=== PATIENT | male | born 1955 | race Caucasian/White ===

== ENCOUNTER 2017-09-21 15:31 | Outpatient (CLI) | END 2017-09-21 15:32 | disposition home or self-care (01) | LOC: RHC-LAB 15:31 | PROVIDERS: ATTEND Emergency Medicine | DX: J02.9 Acute pharyngitis, unspecified (principal); R68.89 Other general symptoms and signs; T14.8XXD Other injury of unspecified body region, subsequent encounter; W57.XXXD Bitten or stung by nonvenomous insect and other nonvenomous arthropods, subsequent encounter | CPT/HCPCS: 87651; 87804 ==

== ENCOUNTER 2017-11-26 15:44 | Outpatient (CLI) | END 2017-11-26 15:45 | disposition home or self-care (01) | LOC: RHC-LAB 15:44 | PROVIDERS: ATTEND Emergency Medicine | DX: R35.0 Frequency of micturition (principal); N40.1 Benign prostatic hyperplasia with lower urinary tract symptoms; R39.11 Hesitancy of micturition; Z00.00 Encounter for general adult medical examination without abnormal findings; Z12.5 Encounter for screening for malignant neoplasm of prostate; T14.8XXA Other injury of unspecified body region, initial encounter; W57.XXXA Bitten or stung by nonvenomous insect and other nonvenomous arthropods, initial encounter | CPT/HCPCS: 36415; 80053; 80061; 84443; 85025; 86617 ==

== ENCOUNTER 2017-12-03 12:13 | Outpatient (CLI) ==
--- NOTE | 2017-12-03 13:15 | US ---
EXAM: Ultrasound of the urinary bladder. History: Hematuria. Technique: Multiple sonographic images through the bladder were obtained. Color duplex Doppler was used to interrogate vascular flow. Findings: 0.6 cm possible mass along the right bladder wall versus adherent blood clot. Only the lef t ureteral jet was seen. A few small bladder diverticula are suspected. Impression: 0.6 cm possible mass of the bladder wall versus adherent blood clot. Further evaluation can be obtained with a CT urogram or consider direct visualization.
== END 2017-12-03 12:14 | disposition home or self-care (01) ==
LOC: RAD 12:13
PROVIDERS: ATTEND Emergency Medicine
DX: N02.9 Recurrent and persistent hematuria with unspecified morphologic changes (principal)

== ENCOUNTER 2018-02-25 15:06 | Outpatient (CLI) | END 2018-02-25 15:07 | disposition home or self-care (01) | LOC: RHC-LAB 15:06 | PROVIDERS: ATTEND Emergency Medicine | DX: Z20.2 Contact with and (suspected) exposure to infections with a predominantly sexual mode of transmission (principal) | CPT/HCPCS: 36415; 86592; 87800 ==